=== PATIENT | male | born 1985 | race Caucasian/White ===

== ENCOUNTER 2023-06-10 10:49 | Emergency (ER) | payer SELFPAY ==
[~2023-06-10] VITALS: Ht 165.1 cm; Wt 88.0 kg
[2023-06-10 11:05] VITALS: TEMP 98; O2SAT 99
[2023-06-10 11:45] VITALS: BP 146/98; PULSE 71; RESP 18
[2023-06-10] MEDS ORDERED: IBUPROFEN 600MG TABLET PO ONE (11:45)
[2023-06-10] MEDS ORDERED: TETANUS, DIPHTHERIA, PERTUSSIS VAC/PF 0.5ML (>10YR OLD) IM ONE ×2 (11:45→13:40)
[2023-06-10] MEDS ORDERED: BACITRACIN ZINC OINT UDPKT TOP ONE (12:30)
[2023-06-10] MEDS ORDERED: CEFAZOLIN 1000MG PREMIX 50 ML IV ONE (12:45)
[2023-06-10] MEDS ORDERED: CEFAZOLIN 2000MG in DEXTROSE 5% WATER 100ML IV NR (14:00)
[2023-06-10] MEDS ORDERED: CEPH500C2 MT (16:01)
== END 2023-06-10 16:39 | disposition home or self-care (01) ==
LOC: ER 10:49
DX: S62.662B Nondisplaced fracture of distal phalanx of right middle finger, initial encounter for open fracture (principal); W18.39XA Other fall on same level, initial encounter; Y93.89 Activity, other specified; Y92.89 Other specified places as the place of occurrence of the external cause; Y99.8 Other external cause status
CPT/HCPCS: 99284; 96365; 73130; 90715; 90471; 73140; J0690; J7060